=== PATIENT | female | born 1980 | race Two or more races ===

== ENCOUNTER 2023-05-28 10:42 | Inpatient (IN) | payer OTHER ==
[~2023-05-28] VITALS: Ht 162.6 cm; Wt 74.8 kg
== END 2023-06-05 17:29 | disposition home or self-care (01) | DRG 743 ==
LOC: OB/GYN 06-03 06:00 → O/R 06-03 06:00 → SURH 06-03 10:39 → OB/GYN 06-03 14:07
PROVIDERS: ADMIT Obstetrics & Gynecology; ATTEND Obstetrics & Gynecology
PROC: 0UB00ZZ Excision of Right Ovary, Open Approach (ICD-10-PCS; principal; 2023-06-03 11:15)
DX: D27.0 Benign neoplasm of right ovary (principal); Z20.822 Contact with and (suspected) exposure to COVID-19